=== PATIENT | female | born 1975 | race Caucasian/White ===

== ENCOUNTER → 2018-06-18 | Outpatient (CLI) | payer OTHER ==
--- NOTE | 2018-06-19 07:12 | US ---
EXAMINATION TYPE: US transvaginal DATE OF EXAM: 06/18/2018 COMPARISON: NONE CLINICAL HISTORY: N39.8 Dysfunctional Uterine Bleeding. TECHNIQUE: Transvaginal (TV). Date of LMP: 05/21/18, patient still bleeding EXAM MEASUREMENTS: Uterus: 10.5 x 5.7 x 6.3 cm Endometrial Stripe: not visualized Right Ovary: 2.3 x 1.4 x 1.6cm Left Ovary: 1.8 x 1.3 x 1.1cm 1. Uterus: fibroid uterus, largest 2. measuring measuring 2.9 x 3.3 x 3.2cm, 2.3 x 2.3 x 2.2cm, mult iple nabothians noted heterogeneous 2. Endometrium: obscured by fibroid 3. Right Ovary: wnl 4. Left Ovary: wnl 5. Bilateral Adnexa: wnl 6. Posterior cul-de-sac: wnl IMPRESSION: 1. Leiomyomatous change of the uterus.
== END | disposition home or self-care (01) ==
LOC: RADUSWWP 15:47
PROVIDERS: ATTEND Family Medicine
DX: N85.8 Other specified noninflammatory disorders of uterus (principal)
CPT/HCPCS: 76830

== ENCOUNTER 2020-06-10 18:04 | Emergency (ER) | payer BC, OTHER ==
[2020-06-10 18:47] VITALS: TEMP 98.1
[2020-06-10 19:36] LABS: Appearance,Urine Cloudy (Clear); Bacteria,Urine Rare /hpf; Bilirubin,Urine Negative (Negative); Blood,Urine Large (Negative); Budding Yeast,Urine Moderate /hpf; Calcium Oxalate Crystals,Urine Occasional /hpf; Color,Urine Light Red; Glucose,Urine (UA) Negative (Negative); Ketones,Urine Negative (Negative); Leukocyte Esterase,Urine Trace (Negative); Mucus,Urine Many /hpf; Nitrite,Urine Negative (Negative); PH, Urine 5.5 (5.0-8.0); Protein,Urine 1+ (Negative); RBC,Urine >182 /hpf (0-5); Specific Gravity,Urine 1.028 (1.001-1.035); Squamous Epithelial Cell,Urine 6 /hpf (0-4); Urobilinogen,Urine <2.0 mg/dL (<2.0); WBC,Urine 4 /hpf (0-5)
[2020-06-10] MEDS ORDERED: MORPHINE SULFATE 4 MG/ML SYRINGE IV STA (20:21)
[2020-06-10] MEDS ORDERED: SODIUM CHLORIDE 0.9% 1,000 ML IV STA (20:21)
--- NOTE | 2020-06-10 20:24 | ED ---
General Adult HPI - General Chief complaint: Back Pain/Injury Stated complaint: abd pain/back pain Time Seen by Provider: 06/10/20 20:11 Source: patient, RN notes reviewed Mode of arrival: ambulatory Limitations: no limitations - History of Present Illness Initial comments: Patient is a 44-year-old female that presents to emergency department complainin g of left flank pain. She notes that she does not have a history of kidney stones, kidney infections, UTIs. She notes that the pain is been happening for the last several hours and came out of nowhere. Sheis a 10 out of 10 constant sharp pain. She did note she has tenderness when she touches her left flank. She was in moderate distress and pain while laying in bed during the exam and interview. She was asking for some pain medication with tears in her eyes. She denied any dysuria, discharge, chest pain shortness of breath headache nausea vomiting diarrhea constipation fever fatigue chills. - Related Data Allergies Allergy/AdvReac Type Severity Reaction Status Date / Time No Known Allergies Allergy Verified 06/10/20 18:47 Review of Systems ROS Statement: Those systems with pertinent positive or pertinent negative responses have been documented in the HPI. ROS Other: All systems not noted in ROS Statement are negative. Past Medical History Past Medical History: No Reported History History of Any Multi-Drug Resistant Organisms: None Reported Past Surgical History: Cholecystectomy Additional Past Surgical History / Comment(s): ablation Past Psychological History: No Psychological Hx Reported Smoking Status: Never smoker Past Alcohol Use History: Occasional Past Drug Use History: None Reported General Exam Limitations: no limitations General appearance: alert, in no apparent distress Head exam: Present: atraumatic, normocephalic, normal inspection Eye exam: Present: normal appearance, PERRL, EOMI. Absent: scleral icterus, co njunctival injection, periorbital swelling Neck exam: Present: normal inspection. Absent: tenderness, meningismus, lymphadenopathy Respiratory exam: Present: normal lung sounds bilaterally. Absent: respiratory distress, wheezes, rales, rhonchi, stridor Cardiovascular Exam: Present: regular rate, normal rhythm, normal heart sounds. Absent: systolic murmur, diastolic murmur, rubs, gallop, clicks GI/Abdominal exam: Present: soft, normal bowel sounds. Absent: distended, tenderness, guarding, rebound, rigid Extremities exam: Present: normal inspection, full ROM, normal capillary refill. Absent: tenderness, pedal edema, joint swelling, calf tenderness Back exam: Present: normal inspection, CVA tenderness (L) Psychiatric exam: Present: normal affect, normal mood Skin exam: Present: warm, dry, intact, normal color. Absent: rash Course Vital Signs 06/10/20 18:44 Temperature 98.1 F Pulse Rate 87 Respiratory 16 Rate Blood Pressure 117/85 O2 Sat by Pulse 98 Oximetry Medical Decision Making - Medical Decision Making 44-year-old female complaining of left flank pain for several hours. Labs, CT of the abdomen and pelvis, 4 mg of morphine, 1 L of normal saline ordered. Labs: Blood work unremarkable, urinalysis shows large amount of blood calcium oxalate crystals mucus rare bacteria moderate urine yeast. Case discussed with Dr. Luz, patient can discharge home with conservative management increase oral fluids. - Lab Data Result diagrams: 06/10/20 20:27 06/10/20 20:27 Lab Results 06/10/20 06/10/20 06/10/20 Range/Units 18:52 20:27 20:27 WBC 12.1 H (3.8-10.6) k/uL RBC 4.48 (3.80-5.40) m/uL Hgb 13.0 (11.4-16.0) gm/dL Hct 39.3 (34.0-46.0) % MCV 87.6 (80.0-100.0) fL MCH 29.0 (25.0-35.0) pg MCHC 33.1 (31.0-37.0) g/dL RDW 12.9 (11.5-15.5) % Plt Count 285 (150-450) k/uL MPV 7.3 Neutrophils % 88 % Lymphocytes % 9 % Monocytes % 2 % Eosinophils % 1 % Basophils % 0 % Neutrophils # 10.6 H (1.3-7.7) k/uL Lymphocytes # 1.1 (1.0-4.8) k/uL Monocytes # 0.3 (0-1.0) k/uL Eosinophils # 0.1 (0-0.7) k/uL Basophils # 0.0 (0-0.2) k/uL Sodium 137 (137-145) mmol/L Potassium 4.2 (3.5-5.1) mmol/L Chloride 105 (98-107) mmol/L Carbon Dioxide 22 (22-30) mmol/L Anion Gap 10 mmol/L BUN 23 H (7-17) mg/dL Creatinine 1.00 (0.52-1.04) mg/dL Est GFR (CKD-EPI)AfAm 79 (>60 ml/min/1.73 sqM) Est GFR (CKD-EPI)NonAf 68 (>60 ml/min/1.73 sqM) Glucose 130 H (74-99) mg/dL Calcium 9.7 (8.4-10.2) mg/dL Total Bilirubin 0.5 (0.2-1.3) mg/dL AST 30 (14-36) U/L ALT 25 (4-34) U/L Alkaline Phosphatase 84 (38-126) U/L Total Protein 7.5 (6.3-8.2) g/dL Albumin 4.8 (3.5-5.0) g/dL Lipase 84 (23-300) U/L Urine Color Light Red Urine Appearance Cloudy H (Clear) Urine pH 5.5 (5.0-8.0) Ur Specific [place] 1.028 (1.001-1.035) Urine Protein 1+ H (Negative) Urine Glucose (UA) Negative (Negative) Urine Ketones Negative (Negative) Urine Blood Large H (Negative) Urine Nitrite Negative (Negative) Urine Bilirubin Negative (Negative) Urine Urobilinogen <2.0 (<2.0) mg/dL Ur Leukocyte Esterase Trace H (Negative) Urine RBC >182 H (0-5) /hpf Urine WBC 4 (0-5) /hpf Ur Squamous Epith Cells 6 H (0-4) /hpf Calcium Oxalate Crystal Occasional H (None) /hpf Urine Bacteria Rare H (None) /hpf Urine Mucus Many H (None) /hpf Urine Yeast (Budding) Moderate H (None) /hpf Disposition Clinical Impression: Nephrolithiasis, Flank pain Disposition: HOME SELF-CARE Condition: Stable Instructions (If sedation given, give patient instructions): Kidney Stones (ED) Additional Instructions: Please return to the Emergency Department if symptoms worsen or any other concerns. Follow-up with primary care in 3-5 days. Take Tylenol 3 as prescribed, can alternate with Motrin 800s as needed for sy mptomatically control. Increase oral fluid intake significantly to help flush the stone. Is patient prescribed a controlled substance at d/c from ED?: Yes When asked, does pt state using other controlled substances?: No If prescribed controlled substance>3 days was MAPS reviewed?: Prescribed <3 Days If opioid is for acute pain is fill amount 7 days or less?: Yes Referrals: Therese Rogers MD [Primary Care Provider] - 1-2 days Time of Disposition: 22:11
[2020-06-10] MEDS ORDERED: ONDANSETRON 4 MG/2 ML VIAL IVP STA (20:33)
[2020-06-10 20:34] LABS: Basophils % (A) 0 %; Eosinophils # (A) 0.1 k/uL (0-0.7); Eosinophils % (A) 1 %; HCT 39.3 % (34.0-46.0); Lymphocytes # (A) 1.1 k/uL (1.0-4.8); Lymphocytes % (A) 9 %; MCHC 33.1 g/dL (31.0-37.0); MCV 87.6 fL (80.0-100.0); Mean Platelet Volume 7.3; Monocytes # (A) 0.3 k/uL (0-1.0); Monocytes % (A) 2 %; Neutrophils # (A) 10.6 k/uL (1.3-7.7); Neutrophils % (A) 88 %; Platelet Count 285 k/uL (150-450); RBC 4.48 m/uL (3.80-5.40); RDW 12.9 % (11.5-15.5); WBC 12.1 k/uL (3.8-10.6)
[2020-06-10 20:45] LABS: Albumin 4.8 g/dL (3.5-5.0); Calcium 9.7 mg/dL (8.4-10.2); Potassium 4.2 mmol/L (3.5-5.1); Total Bilirubin 0.5 mg/dL (0.2-1.3); Total Protein 7.5 g/dL (6.3-8.2)
[2020-06-10] MEDS ORDERED: KETOROLAC 15 MG/ML 1 ML VIAL IVP STA (21:31)
[2020-06-10] MEDS ORDERED: HYDROmorphone 1 MG/ML 1 ML SYRINGE IVP STA (21:48)
--- NOTE | 2020-06-10 22:01 | CT ---
EXAMINATION TYPE: CT abdomen pelvis w con DATE OF EXAM: 06/10/2020 COMPARISON: None HISTORY: abd pain for [address] DLP: 1679 mGycm Automated exposure control for dose reduction was used. CONTRAST: Performed with IV Contrast, patient injected with 100 mL of Isovue 300. Images obtained from the diaphragm to the floor the pelvis with IV contrast. Lung bases are clear. There is no pleural effusion. Heart size is normal. There is no pericardial eff usion. There are clips from cholecystectomy. Liver is intact. The bile ducts are not dilated. There is no pa ncreatic mass. Stomach is intact. There are small calcified splenic granulomata. There is no adrenal mass. Kidneys have normal size. There is left side mild hydronephrosis and obstru cting 3 mm calculus proximal left ureter. This is close to the ureteral pelvic junction. There is no retroperitoneal adenopathy. Delayed images show delayed left side pyelogram. Bladder distends smoothl y. Uterus is anteverted. There is probably 3 cm fibroid on the posterior wall of the uterus. There is no free fluid in the pelvis. There is no evidence of a mass. Appendix appears normal. There are multiple sigmoid diverticula. There is no sign of diverticulitis. There is no mesenteric ed mark. There is no ascites or free air. There is no evidence of bowel obstruction. Lumbar vertebra have normal alignment. There is no compression fracture. The hip joints are intact. T here is vacuum disc at L5-S1 with mild disc space narrowing. IMPRESSION: Obstructing small calculus at the left proximal ureter. Mild left-sided hydronephrosis. No other car l calculus seen. Normal appendix.
[2020-06-10] MEDS ORDERED: ACET/COD 300 MG/30 MG STARTER PACK 6 TAB BTL PO STA (22:10)
[2020-06-10] MEDS ORDERED: ONDANSETRON 4 MG ODT STARTER PACK 2 TAB BTL PO STA (22:27)
[2020-06-10 23:48] VITALS: BP 110/72; PULSE 71; RESP 17
== END 2020-06-10 23:52 | disposition home or self-care (01) ==
LOC: EC 18:04
DX: N13.2 Hydronephrosis with renal and ureteral calculous obstruction (principal)
CPT/HCPCS: 36415; 80053; 83690; 85025; 81001; 74177; 99284; 96374; 96375; 96361; J2270; J2405; J0696; J1170; J1885; S0119; Q9967

== ENCOUNTER → 2022-05-23 | Outpatient (CLI) | payer BC | END | disposition home or self-care (01) | LOC: LABWHC1 11:57 | PROVIDERS: ATTEND Psychiatry & Neurology Neurology | DX: I49.9 Cardiac arrhythmia, unspecified (principal) | CPT/HCPCS: 36415; 93005 ==

== ENCOUNTER → 2024-08-16 | Outpatient (CLI) | payer BC | END | disposition home or self-care (01) | LOC: LABPAT 09:20 | PROVIDERS: ATTEND Family Medicine | DX: Z01.812 Encounter for preprocedural laboratory examination (principal) | CPT/HCPCS: 85730 ==

== ENCOUNTER → 2024-08-20 | Outpatient (CLI) | payer BC ==
[2024-08-20 15:32] LABS: T4, Free (Free Thyroxine) 1.07 ng/dL (0.80-1.80)
== END | disposition home or self-care (01) ==
LOC: LABWHC1 08:05
PROVIDERS: ATTEND Family Medicine
DX: E04.1 Nontoxic single thyroid nodule (principal)
CPT/HCPCS: 36415; 84439; 84443; 84480